=== PATIENT | female | born 1995 | race Two or more races ===

== ENCOUNTER 2025-08-01 15:27 | Emergency (ER) | payer BC ==
[~2025-08-01] VITALS: Ht 167.6 cm; Wt 63.5 kg
[2025-08-01 17:08] VITALS: BP 120/72
[2025-08-01 18:58] LABS: PLATELET COUNT (AUTO) 327 K/uL (179-408); RED BLOOD CELL COUNT(AUTO) 4.54 MIL/uL (3.63-4.92); RED CELL DISTRIBUTION WIDTH 12.0 % (12.3-17.7); WHITE BLOOD COUNT (AUTO) 8.5 K/uL (3.8-11.8)
[2025-08-01 19:08] LABS: CREATININE 0.6 mg/dL (0.6-1.3); SODIUM SERUM 141.0 mmol/L (136-145); UREA NITROGEN, BLOOD 14.0 mg/dL (7-18)
[2025-08-01 19:18] LABS: PREGNANCY TEST SERUM QUAN 106.0 miul/L (0-6)
[2025-08-01 19:19] LABS: *BILIRUBIN,URIN NEGATIVE (NEGATIVE); *BLOOD, URINE 3+ (NEGATIVE); *CLARITY,URINE CLEAR (CLEAR); *KETONES,URINE NEGATIVE (NEGATIVE); *PROTEIN,URINE NEGATIVE (NEGATIVE); *UROBILINOGEN,URINE 0.2 E.U./dl (NORMAL); LEUKOCYTE ESTERASE ,URINE NEGATIVE (NEGATIVE); NITRITE, URINE NEGATIVE (NEGATIVE); UGLUCOSE NEGATIVE (NEGATIVE)
[2025-08-01 19:22] LABS: ASPARTATE AMINOTRANSFERASE 15.0 U/L (15-37); TOTAL PROTEIN, SERUM 8.0 g/dL (6.4-8.2)
[2025-08-01 19:27] LABS: *COLOR,URINE PINK (YELLOW)
[2025-08-01 19:46] LABS: SQUAMOUS EPITHELIAL CELL,UR FEW /HPF (NONE SEEN)
[2025-08-01 19:53] VITALS: BP 125/77; TEMP 98.2; O2SAT 98
== END 2025-08-01 19:56 | disposition home or self-care (01) ==
LOC: ER 15:32
DX: O20.9 Hemorrhage in early pregnancy, unspecified (principal); R93.89 Abnormal findings on diagnostic imaging of other specified body structures; R10.2 Pelvic and perineal pain; Z88.1 Allergy status to other antibiotic agents; Z3A.01 Less than 8 weeks gestation of pregnancy
CPT/HCPCS: 36415; 76856; 85025; 85730; 86850; 86900; 86901; A4606; A4663